=== PATIENT | female | born 1960 | race Caucasian/White ===

== ENCOUNTER 2021-06-07 10:01 | Outpatient (CLI) | payer OTHER | END 2021-06-07 10:02 | disposition home or self-care (01) | LOC: BICRAD 10:01 | PROVIDERS: ATTEND Internal Medicine | DX: Z02.71 Encounter for disability determination (principal); M47.816 Spondylosis without myelopathy or radiculopathy, lumbar region; M47.817 Spondylosis without myelopathy or radiculopathy, lumbosacral region | CPT/HCPCS: 72100 ==

== ENCOUNTER 2022-02-06 07:15 | Outpatient (CLI) | payer OTHER | END 2022-02-06 07:16 | disposition home or self-care (01) | LOC: BICCT 07:15 | PROVIDERS: ATTEND Student in an Organized Health Care Education/Training Program | DX: Z12.2 Encounter for screening for malignant neoplasm of respiratory organs (principal); F17.211 Nicotine dependence, cigarettes, in remission | CPT/HCPCS: 71271 ==

== ENCOUNTER 2022-06-25 09:28 | Outpatient (CLI) | payer OTHER | END 2022-06-25 09:29 | disposition home or self-care (01) | LOC: SCSRAD 09:28 | PROVIDERS: ATTEND Family Medicine | DX: M25.422 Effusion, left elbow (principal); M79.602 Pain in left arm ==

== ENCOUNTER 2023-01-20 12:26 | Outpatient (CLI) | payer MEDICARE | END 2023-01-20 12:27 | disposition home or self-care (01) | LOC: BICMAMMO 12:26 | PROVIDERS: ATTEND Student in an Organized Health Care Education/Training Program | DX: Z12.31 Encounter for screening mammogram for malignant neoplasm of breast (principal); Z80.3 Family history of malignant neoplasm of breast; Z91.89 Other specified personal risk factors, not elsewhere classified | CPT/HCPCS: 77063; 77067 ==

== ENCOUNTER 2023-01-20 13:03 | Outpatient (CLI) | payer OTHER | END 2023-01-20 13:04 | disposition home or self-care (01) | LOC: CT 13:03 | PROVIDERS: ATTEND Neurological Surgery | DX: R51.9 Headache, unspecified (principal) | CPT/HCPCS: 70450 ==